=== PATIENT | female | born 1950 | race African-American/Black ===

== ENCOUNTER 2018-09-09 09:42 | Emergency (ER) | payer SELFPAY | END 2018-09-09 12:45 | disposition home or self-care (01) | LOC: JERFT 09:42 ==

== ENCOUNTER 2021-07-28 10:38 | Emergency (ER) | payer SELFPAY ==
[2021-07-28 10:56] VITALS: BP 169/89; PULSE 71; TEMP 97.3; BMI 36.9
[2021-07-28] MEDS ORDERED: METHOCARBAMOL 500 MG TABLET PO ONE (11:34)
[2021-07-28] MEDS ORDERED: KETOROLAC TROMETHAMINE 30 MG/1 ML VIAL IM ONE (11:34)
[2021-07-28] MEDS ORDERED: METHOCARBAMOL 500 MG TABLET ONE (11:55)
[2021-07-28] MEDS ORDERED: KETOROLAC TROMETHAMINE 30 MG/1 ML VIAL ONE (11:55)
== END 2021-07-28 12:46 | disposition home or self-care (01) ==
LOC: JERFT 10:38
PROC: 3E023GC Introduction of Other Therapeutic Substance into Muscle, Percutaneous Approach (ICD-10-PCS; principal; 2021-07-28)
DX: M62.830 Muscle spasm of back (principal); M62.838 Other muscle spasm
CPT/HCPCS: 99284-25

== ENCOUNTER 2021-07-31 19:34 | Inpatient (IN) | payer OTHER ==
[2021-07-31 19:43] VITALS: BMI 34.0
[2021-07-31] MEDS ORDERED: KETOROLAC TROMETHAMINE 30 MG/1 ML VIAL IM ONE (20:31)
[2021-07-31] MEDS ORDERED: KETOROLAC TROMETHAMINE 30 MG/1 ML VIAL ONE (20:35)
[2021-07-31] MEDS ORDERED: LIDOCAINE 5% TOPICAL PATCH TP ONE (20:41)
[2021-07-31] MEDS ORDERED: LIDOCAINE 5% TOPICAL PATCH ONE (20:43)
[2021-07-31] MEDS ORDERED: morphine SULFATE 4 MG/ML VIAL IVPUSH ONE (22:49)
[2021-07-31] MEDS ORDERED: ONDANSETRON *ODT* 4 MG TABLET SL ONE (22:50)
[2021-08-01 00:03] LABS: EPI CELLS >36 /uL (0-25.1); HYALINE CASTS 7 /uL (0-3.1); PH,URINE 5.5 (5.0-8.0); URINE APPEARANCE CLOUDY; URINE BACTERIA 976 /uL (0-1359); URINE BILIRUBIN NEGATIVE (NEGATIVE); URINE COLOR YELLOW; URINE GLUCOSE (UA) NEGATIVE (NEGATIVE); URINE KETONE TRACE (NEGATIVE); URINE LEUK ESTERASE TRACE (NEGATIVE); URINE NITRITE NEGATIVE (NEGATIVE); URINE PROTEIN NEGATIVE (NEGATIVE); URINE RBC 9 /uL (0-23.9); URINE WBC 31 /uL (0-25.8)
[2021-08-01] MEDS ORDERED: LIDOCAINE 5% TOPICAL PATCH ONE (00:56)
[2021-08-01] MEDS ORDERED: morphine SULFATE 4 MG/ML VIAL ONE (00:56)
[2021-08-01] MEDS ORDERED: ONDANSETRON 4 MG/2 ML VIAL ONE (00:57)
[2021-08-01] MEDS: LIDOCAINE PATCH REMOVAL MC SCH ×2 (01:03→22:00)
[2021-08-01 01:25] LABS: BASO % 0.7 % (0-2.0); EOS % 2.3 % (0-4.5); HEMATOCRIT 38.2 % (32.4-45.2); HEMOGLOBIN 12.6 GM/dL (10.7-15.3); LYMPH % 26.2 % (8-40); MCH 27.7 pg (25.7-33.7); MCHC 33.1 g/dl (32.0-36.0); MEAN CELL VOLUME 83.5 fl (80-96); MONO % 7.5 % (3.8-10.2); NEUT % 63.3 % (42.8-82.8); PLATELET COUNT 330 10^3/uL (134-434); RBC 4.57 M/mm3 (3.60-5.2); RDW 15.4 % (11.6-15.6); WHITE BLOOD COUNT 6.6 K/mm3 (4.0-10.0)
[2021-08-01 01:46] LABS: ALBUMIN 3.4 g/dl (3.4-5.0); BLOOD UREA NITROGEN 13.9 mg/dL (7-18)
[2021-08-01 01:49] LABS: CREATININE 0.7 mg/dL (0.55-1.3)
[2021-08-01 01:50] LABS: BILIRUBIN,TOTAL 0.6 mg/dL (0.2-1); TOT PROT 7.2 g/dl (6.4-8.2)
[2021-08-01] MEDS ORDERED: ACETAMINOPHEN 1000 MG/100 ML BAG IVPB ONE (02:14)
[2021-08-01] MEDS ORDERED: ACETAMINOPHEN INJECTION 100 ML IVPB ONE (02:18)
[2021-08-01] MEDS ORDERED: ACETAMINOPHEN 1000 MG/100 ML BAG IVPB PRN (03:29)
[2021-08-01] MEDS: KETOROLAC TROMETHAMINE 15 MG/ML VIAL IVPUSH PRN ×3 (04:33→22:05)
[2021-08-01 09:30] LABS: HEMATOCRIT 39.1 % (32.4-45.2); MCH 27.8 pg (25.7-33.7); MCHC 33.2 g/dl (32.0-36.0); MEAN CELL VOLUME 83.9 fl (80-96); MEAN PLT VOLUME 8.3 fl (7.5-11.1); PLATELET COUNT 322 10^3/uL (134-434); RBC 4.66 M/mm3 (3.60-5.2); RDW 15.5 % (11.6-15.6); WHITE BLOOD COUNT 5.7 K/mm3 (4.0-10.0)
[2021-08-01] MEDS: ENOXAPARIN NA (PORCINE) 40 MG/0.4 ML DISP.SYRIN SQ SCH (10:27)
[2021-08-01 12:33] LABS: CALCIUM 9.3 mg/dL (8.5-10.1)
[2021-08-01 12:37] LABS: CREATININE 0.6 mg/dL (0.55-1.3)
[2021-08-02] MEDS: KETOROLAC TROMETHAMINE 15 MG/ML VIAL IVPUSH PRN ×3 (04:49→23:45)
[2021-08-02] MEDS: ENOXAPARIN NA (PORCINE) 40 MG/0.4 ML DISP.SYRIN SQ SCH (10:14)
[2021-08-02 11:12] LABS: PH,URINE 5.5 (5.0-8.0); URINE APPEARANCE CLEAR; URINE BILIRUBIN NEGATIVE (NEGATIVE); URINE COLOR YELLOW; URINE GLUCOSE (UA) NEGATIVE (NEGATIVE); URINE KETONE TRACE (NEGATIVE); URINE LEUK ESTERASE NEGATIVE (NEGATIVE); URINE NITRITE NEGATIVE (NEGATIVE); URINE PROTEIN NEGATIVE (NEGATIVE)
[2021-08-02] MEDS: BACLOFEN 10 MG TABLET (FP) PO SCH ×2 (13:42→21:44)
[2021-08-02] MEDS: LIDOCAINE PATCH REMOVAL MC SCH (21:44)
[2021-08-03] MEDS: ACETAMINOPHEN 325 MG TABLET (FP) PO PRN ×4 (04:19→20:02)
[2021-08-03] MEDS: BACLOFEN 10 MG TABLET (FP) PO SCH ×3 (06:38→22:06)
[2021-08-03] MEDS: LEVOTHYROXINE NA 50 MCG TABLET (FP) PO SCH (06:38)
[2021-08-03 08:11] LABS: EOS % 4.7 % (0-4.5); HEMATOCRIT 38.6 % (32.4-45.2); HEMOGLOBIN 12.5 GM/dL (10.7-15.3); LYMPH % 36.4 % (8-40); MCH 27.2 pg (25.7-33.7); MCHC 32.4 g/dl (32.0-36.0); MEAN PLT VOLUME 8.4 fl (7.5-11.1); MONO % 10.1 % (3.8-10.2); NEUT % 47.8 % (42.8-82.8); PLATELET COUNT 341 10^3/uL (134-434); RBC 4.59 M/mm3 (3.60-5.2); RDW 15.3 % (11.6-15.6); WHITE BLOOD COUNT 4.4 K/mm3 (4.0-10.0)
[2021-08-03 08:21] LABS: ALBUMIN 3.1 g/dl (3.4-5.0); BLOOD UREA NITROGEN 14.3 mg/dL (7-18); MAGNESIUM 2.3 mg/dL (1.8-2.4)
[2021-08-03 08:24] LABS: CREATININE 0.6 mg/dL (0.55-1.3); PHOSPHOROUS 3.6 mg/dL (2.5-4.9)
[2021-08-03 08:25] LABS: BILIRUBIN,TOTAL 0.5 mg/dL (0.2-1); TOT PROT 6.6 g/dl (6.4-8.2)
[2021-08-03] MEDS: ENOXAPARIN NA (PORCINE) 40 MG/0.4 ML DISP.SYRIN SQ SCH (09:34)
[2021-08-03] MEDS ORDERED: DEXAMETHASONE 4 MG TABLET (FP) PO ONE (13:00)
[2021-08-03] MEDS: LIDOCAINE PATCH REMOVAL MC SCH (22:07)
[2021-08-03] MEDS: KETOROLAC TROMETHAMINE 15 MG/ML VIAL IVPUSH PRN (23:09)
[2021-08-04] MEDS: KETOROLAC TROMETHAMINE 15 MG/ML VIAL IVPUSH PRN ×2 (04:52→21:33)
[2021-08-04] MEDS: BACLOFEN 10 MG TABLET (FP) PO SCH ×3 (05:13→21:32)
[2021-08-04] MEDS: LEVOTHYROXINE NA 50 MCG TABLET (FP) PO SCH (06:17)
[2021-08-04 08:52] LABS: BASO % 0.5 % (0-2.0); EOS % 0.1 % (0-4.5); LYMPH % 15.5 % (8-40); MCH 27.4 pg (25.7-33.7); MCHC 32.6 g/dl (32.0-36.0); MEAN CELL VOLUME 84.2 fl (80-96); MEAN PLT VOLUME 8.3 fl (7.5-11.1); MONO % 7.3 % (3.8-10.2); NEUT % 76.6 % (42.8-82.8); PLATELET COUNT 366 10^3/uL (134-434); RBC 4.75 M/mm3 (3.60-5.2); RDW 15.1 % (11.6-15.6); WHITE BLOOD COUNT 9.2 K/mm3 (4.0-10.0)
[2021-08-04 09:28] LABS: CALCIUM 9.9 mg/dL (8.5-10.1)
[2021-08-04 09:29] LABS: ALBUMIN 3.3 g/dl (3.4-5.0); BLOOD UREA NITROGEN 19.5 mg/dL (7-18); MAGNESIUM 2.2 mg/dL (1.8-2.4)
[2021-08-04] MEDS: ENOXAPARIN NA (PORCINE) 40 MG/0.4 ML DISP.SYRIN SQ SCH (09:30)
[2021-08-04] MEDS: ACETAMINOPHEN 325 MG TABLET (FP) PO PRN (09:30)
[2021-08-04 09:31] LABS: CREATININE 0.6 mg/dL (0.55-1.3)
[2021-08-04 09:32] LABS: PHOSPHOROUS 3.7 mg/dL (2.5-4.9)
[2021-08-04 09:33] LABS: BILIRUBIN,TOTAL 0.8 mg/dL (0.2-1)
[2021-08-04] MEDS ORDERED: LIDOCAINE 5% TOPICAL PATCH TP ONE (14:31)
[2021-08-04] MEDS ORDERED: LIDOCAINE PATCH REMOVAL MC ONE (22:00)
[2021-08-04] MEDS: LIDOCAINE PATCH REMOVAL MC SCH (23:10)
[2021-08-05] MEDS: ACETAMINOPHEN 325 MG TABLET (FP) PO PRN (02:43)
[2021-08-05] MEDS: KETOROLAC TROMETHAMINE 15 MG/ML VIAL IVPUSH PRN (06:26)
[2021-08-05] MEDS: BACLOFEN 10 MG TABLET (FP) PO SCH ×3 (06:26→21:18)
[2021-08-05] MEDS: LEVOTHYROXINE NA 50 MCG TABLET (FP) PO SCH (06:26)
[2021-08-05] MEDS: ENOXAPARIN NA (PORCINE) 40 MG/0.4 ML DISP.SYRIN SQ SCH (10:51)
[2021-08-05 11:30] LABS: BASO % 0.7 % (0-2.0); EOS % 2.4 % (0-4.5); HEMATOCRIT 38.4 % (32.4-45.2); HEMOGLOBIN 12.6 GM/dL (10.7-15.3); LYMPH % 34.7 % (8-40); MCH 27.6 pg (25.7-33.7); MCHC 32.9 g/dl (32.0-36.0); MONO % 9.6 % (3.8-10.2); NEUT % 52.6 % (42.8-82.8); PLATELET COUNT 333 10^3/uL (134-434); RBC 4.57 M/mm3 (3.60-5.2); RDW 15.6 % (11.6-15.6); WHITE BLOOD COUNT 5.8 K/mm3 (4.0-10.0)
[2021-08-05 11:39] LABS: CALCIUM 9.3 mg/dL (8.5-10.1)
[2021-08-05 11:40] LABS: BLOOD UREA NITROGEN 17.2 mg/dL (7-18); MAGNESIUM 2.2 mg/dL (1.8-2.4)
[2021-08-05 11:42] LABS: PHOSPHOROUS 3.8 mg/dL (2.5-4.9)
[2021-08-05 11:43] LABS: CREATININE 0.6 mg/dL (0.55-1.3)
[2021-08-05 11:44] LABS: BILIRUBIN,TOTAL 0.4 mg/dL (0.2-1); TOT PROT 6.4 g/dl (6.4-8.2)
[2021-08-05] MEDS: ACETAMINOPHEN 500 MG TABLET (FP) PO SCH ×3 (17:25→23:06)
[2021-08-05] MEDS ORDERED: LIDOCAINE PATCH REMOVAL MC SCH (22:00)
[2021-08-05] MEDS ORDERED: KETOROLAC TROMETHAMINE 15 MG/ML VIAL IM ONE (23:50)
[2021-08-06] MEDS: GABAPENTIN 300 MG CAPSULE PO SCH ×2 (06:28→13:01)
[2021-08-06] MEDS: BACLOFEN 10 MG TABLET (FP) PO SCH ×2 (06:28→13:00)
[2021-08-06] MEDS: LEVOTHYROXINE NA 50 MCG TABLET (FP) PO SCH (06:28)
[2021-08-06] MEDS: ACETAMINOPHEN 500 MG TABLET (FP) PO SCH ×2 (06:30→14:54)
[2021-08-06] MEDS: ENOXAPARIN NA (PORCINE) 40 MG/0.4 ML DISP.SYRIN SQ SCH (09:30)
[2021-08-06] MEDS ORDERED: LIDOCAINE 5% TOPICAL PATCH TP SCH (10:00)
[2021-08-06 14:07] VITALS: BP 125/69; PULSE 73; TEMP 98.3
== END 2021-08-06 16:26 | disposition home or self-care (01) | DRG 552 ==
LOC: JER 19:34 → JERBED 08-01 01:53 → UNDOADMIN 08-01 01:53 → J6S 08-01 04:09 → OBSVTOIN 08-02 13:58
PROVIDERS: ADMIT Hospitalist; ATTEND Internal Medicine
DX: M54.32 Sciatica, left side (principal); J45.909 Unspecified asthma, uncomplicated; E66.9 Obesity, unspecified; Z68.34 Body mass index [BMI] 34.0-34.9, adult; M54.50 Low back pain, unspecified; J45.20 Mild intermittent asthma, uncomplicated; M48.061 Spinal stenosis, lumbar region without neurogenic claudication; M51.16 Intervertebral disc disorders with radiculopathy, lumbar region; M51.37 Other intervertebral disc degeneration, lumbosacral region; E06.3 Autoimmune thyroiditis; K44.9 Diaphragmatic hernia without obstruction or gangrene; N28.1 Cyst of kidney, acquired
CPT/HCPCS: 36415; 71046-TC-FY; 72131-TC; 74176-TC; 76830-TC; 80048; 80053; 80061; 81003; 83036; 83735; 84100; 84439; 84443; 85025; 85027; 87086; 93005; 93010; 97116-GP; 97161-GP; 99285-25; C9803-CS; G0378; J0475; Q0162; U0003; U0005

== ENCOUNTER 2022-01-21 23:30 | Inpatient (IN) | payer OTHER ==
[2022-01-22 03:34] LABS: BASO % 0.6 % (0-2.0); EOS % 2.6 % (0-4.5); HEMATOCRIT 46.3 % (32.4-45.2); HEMOGLOBIN 14.9 GM/dL (10.7-15.3); LYMPH % 21.1 % (8-40); MCH 26.5 pg (25.7-33.7); MCHC 32.2 g/dl (32.0-36.0); MEAN CELL VOLUME 82.3 fl (80-96); MEAN PLT VOLUME 7.9 fl (7.5-11.1); MONO % 6.5 % (3.8-10.2); NEUT % 69.2 % (42.8-82.8); PLATELET COUNT 207 10^3/uL (134-434); RBC 5.62 M/mm3 (3.60-5.2); RDW 15.6 % (11.6-15.6); WHITE BLOOD COUNT 5.4 K/mm3 (4.0-10.0)
[2022-01-22 03:39] LABS: CALCIUM 8.8 mg/dL (8.5-10.1)
[2022-01-22 03:40] LABS: ALBUMIN 3.1 g/dl (3.4-5.0); BLOOD UREA NITROGEN 10.1 mg/dL (7-18)
[2022-01-22 03:43] LABS: CREATININE 0.6 mg/dL (0.55-1.3)
[2022-01-22 03:44] LABS: BILIRUBIN,TOTAL 0.4 mg/dL (0.2-1); TOT PROT 6.8 g/dl (6.4-8.2)
[2022-01-22] MEDS ORDERED: GABAPENTIN 300 MG CAPSULE PO SCH (06:00)
[2022-01-22] MEDS ORDERED: ACETAMINOPHEN 325 MG TABLET (FP) ONE (06:21)
[2022-01-22] MEDS ORDERED: GABAPENTIN 300 MG CAPSULE ONE (06:21)
[2022-01-22] MEDS: ACETAMINOPHEN 325 MG TABLET (FP) PO SCH ×4 (06:24→23:48)
[2022-01-22] MEDS ORDERED: LEVOTHYROXINE NA 50 MCG TABLET (FP) PO SCH (07:00)
[2022-01-22 08:40] VITALS: BMI 39.1
[2022-01-22] MEDS: LIDOCAINE 5% TOPICAL PATCH TP SCH (10:23)
[2022-01-22] MEDS: ENOXAPARIN NA (PORCINE) 40 MG/0.4 ML DISP.SYRIN SQ SCH (10:24)
[2022-01-22] MEDS: METHOCARBAMOL 500 MG TABLET PO SCH ×2 (10:24→23:29)
[2022-01-22] MEDS: GABAPENTIN 300 MG CAPSULE PO SCH ×2 (13:46→23:28)
[2022-01-22] MEDS: LIDOCAINE PATCH REMOVAL MC SCH (23:36)
[2022-01-23] MEDS: oxyCODONE HCL 5 MG TABLET PO PRN ×2 (01:54→20:04)
[2022-01-23] MEDS: GABAPENTIN 300 MG CAPSULE PO SCH ×3 (07:03→21:12)
[2022-01-23] MEDS: LEVOTHYROXINE NA 75 MCG TABLET (FP) PO SCH (07:03)
[2022-01-23] MEDS: ACETAMINOPHEN 325 MG TABLET (FP) PO SCH ×3 (07:03→17:46)
[2022-01-23] MEDS: ENOXAPARIN NA (PORCINE) 40 MG/0.4 ML DISP.SYRIN SQ SCH (09:20)
[2022-01-23] MEDS: METHOCARBAMOL 500 MG TABLET PO SCH ×2 (09:21→21:13)
[2022-01-23] MEDS: LIDOCAINE 5% TOPICAL PATCH TP SCH (09:21)
[2022-01-23] MEDS: LIDOCAINE PATCH REMOVAL MC SCH (22:20)
[2022-01-24] MEDS: ACETAMINOPHEN 325 MG TABLET (FP) PO SCH ×4 (00:18→18:54)
[2022-01-24] MEDS: GABAPENTIN 300 MG CAPSULE PO SCH ×3 (06:18→21:12)
[2022-01-24] MEDS: LEVOTHYROXINE NA 75 MCG TABLET (FP) PO SCH (06:19)
[2022-01-24] MEDS: LIDOCAINE 5% TOPICAL PATCH TP SCH (10:23)
[2022-01-24] MEDS: METHOCARBAMOL 500 MG TABLET PO SCH ×2 (10:23→21:12)
[2022-01-24] MEDS: ENOXAPARIN NA (PORCINE) 40 MG/0.4 ML DISP.SYRIN SQ SCH (10:24)
[2022-01-24] MEDS ORDERED: LORazepam 1 MG TABLET PO PRN (13:18)
[2022-01-24] MEDS: oxyCODONE HCL 5 MG TABLET PO PRN ×2 (17:09→21:14)
[2022-01-24] MEDS: LIDOCAINE PATCH REMOVAL MC SCH (21:18)
[2022-01-25] MEDS: ACETAMINOPHEN 325 MG TABLET (FP) PO SCH ×4 (01:27→17:31)
[2022-01-25] MEDS: GABAPENTIN 300 MG CAPSULE PO SCH ×3 (06:35→21:13)
[2022-01-25] MEDS: LEVOTHYROXINE NA 75 MCG TABLET (FP) PO SCH (06:37)
[2022-01-25] MEDS: LIDOCAINE 5% TOPICAL PATCH TP SCH (09:48)
[2022-01-25] MEDS: ENOXAPARIN NA (PORCINE) 40 MG/0.4 ML DISP.SYRIN SQ SCH (09:48)
[2022-01-25] MEDS: METHOCARBAMOL 500 MG TABLET PO SCH ×2 (09:48→21:13)
[2022-01-25] MEDS: oxyCODONE HCL 5 MG TABLET PO PRN ×2 (09:48→22:42)
[2022-01-25] MEDS: LIDOCAINE PATCH REMOVAL MC SCH (22:40)
[2022-01-26] MEDS: ACETAMINOPHEN 325 MG TABLET (FP) PO SCH ×4 (01:33→17:44)
[2022-01-26] MEDS: GABAPENTIN 300 MG CAPSULE PO SCH ×3 (06:03→21:43)
[2022-01-26] MEDS: LEVOTHYROXINE NA 75 MCG TABLET (FP) PO SCH (06:04)
[2022-01-26] MEDS: ENOXAPARIN NA (PORCINE) 40 MG/0.4 ML DISP.SYRIN SQ SCH (09:50)
[2022-01-26] MEDS: METHOCARBAMOL 500 MG TABLET PO SCH ×2 (10:29→21:44)
[2022-01-26] MEDS: LIDOCAINE 5% TOPICAL PATCH TP SCH (10:29)
[2022-01-26 10:32] LABS: HEMATOCRIT 36.3 % (32.4-45.2); MCH 27.1 pg (25.7-33.7); MCHC 33.2 g/dl (32.0-36.0); MEAN CELL VOLUME 81.7 fl (80-96); PLATELET COUNT 338 10^3/uL (134-434); RBC 4.44 M/mm3 (3.60-5.2); WHITE BLOOD COUNT 5.9 K/mm3 (4.0-10.0)
[2022-01-26 10:53] LABS: CALCIUM 9.2 mg/dL (8.5-10.1)
[2022-01-26 10:54] LABS: ALBUMIN 3.1 g/dl (3.4-5.0); BLOOD UREA NITROGEN 12.5 mg/dL (7-18)
[2022-01-26 10:57] LABS: CREATININE 0.6 mg/dL (0.55-1.3)
[2022-01-26 10:58] LABS: BILIRUBIN,TOTAL 0.6 mg/dL (0.2-1); TOT PROT 7.1 g/dl (6.4-8.2)
[2022-01-26] MEDS: oxyCODONE HCL 5 MG TABLET PO PRN ×2 (13:21→17:45)
[2022-01-26] MEDS: LIDOCAINE PATCH REMOVAL MC SCH (21:47)
[2022-01-27] MEDS: ACETAMINOPHEN 325 MG TABLET (FP) PO SCH ×3 (01:08→11:06)
[2022-01-27] MEDS: GABAPENTIN 300 MG CAPSULE PO SCH ×2 (06:22→14:28)
[2022-01-27] MEDS: LEVOTHYROXINE NA 75 MCG TABLET (FP) PO SCH (06:23)
[2022-01-27] MEDS: LIDOCAINE 5% TOPICAL PATCH TP SCH (11:06)
[2022-01-27] MEDS: METHOCARBAMOL 500 MG TABLET PO SCH (11:07)
[2022-01-27] MEDS: ENOXAPARIN NA (PORCINE) 40 MG/0.4 ML DISP.SYRIN SQ SCH (11:11)
[2022-01-27 15:35] VITALS: BP 140/77; PULSE 94; RESP 20; TEMP 98.8
== END 2022-01-27 16:50 | disposition home health service (06) | DRG 552 ==
LOC: JER 23:30 → JERBED 01-22 00:27 → UNDOADMOB 01-22 00:27 → INTOOBSV 01-22 00:27 → JERBED 01-22 04:59 → J8W 01-22 07:05 → OBSVTOIN 01-23 13:28
PROVIDERS: ADMIT Internal Medicine; ATTEND Internal Medicine
DX: M51.16 Intervertebral disc disorders with radiculopathy, lumbar region (principal); M48.061 Spinal stenosis, lumbar region without neurogenic claudication; J45.909 Unspecified asthma, uncomplicated; E66.9 Obesity, unspecified; Z68.39 Body mass index [BMI] 39.0-39.9, adult; M35.3 Polymyalgia rheumatica; E03.9 Hypothyroidism, unspecified; F41.9 Anxiety disorder, unspecified; G89.29 Other chronic pain; I51.7 Cardiomegaly
CPT/HCPCS: 0241U-QW; 36415; 71045-TC-FY; 80053; 84439; 84443; 85025; 85027; 93005; 93010; 93971-TC; 94010; 97116-GP; 99285-25; G0378